=== PATIENT | male | born 1980 | race Caucasian/White ===

== ENCOUNTER 2020-02-18 14:48 | Emergency (ER) | payer BC, OTHER ==
[~2020-02-18] VITALS: Ht 188 cm; Wt 100.0 kg
[2020-02-18 15:09] LABS: BASO % 0.7 % (0.0-1.0); EOS # 0.1 10^3/uL (0.0-0.5); HEMATOCRIT 48.3 % (42.0-52.0); HEMOGLOBIN 15.6 g/dl (13.5-17.5); LYMPH # 1.9 10^3/uL (1.5-5.0); LYMPH % 32.1 % (24.0-44.0); MEAN CORPUSCULAR HEMOGLOBIN 29.2 pg (27.0-33.0); MEAN CORPUSCULAR HGB CONC 32.3 g/dl (32.0-36.5); MEAN CORPUSCULAR VOLUME 90.3 fl (80.0-96.0); MONO # 0.6 10^3/uL (0.0-0.8); MONO % 10.4 % (0.0-5.0); NEUTROPHILS # 3.3 10^3/uL (1.5-8.5); NEUTROPHILS % 55.5 % (36.0-66.0); PLATELET COUNT, AUTOMATED 231 10^3/uL (150-450); RED BLOOD COUNT 5.35 10^6/uL (4.30-6.10)
[2020-02-18] MEDS ORDERED: NS 1,000 ML IV ONE (15:15)
[2020-02-18 15:59] LABS: ALBUMIN 3.9 GM/DL (3.2-5.2); ALT/SGPT 30 U/L (12-78); BILIRUBIN,TOTAL 0.5 MG/DL (0.2-1.0); BLOOD UREA NITROGEN 10 MG/DL (7-18); CALCIUM LEVEL 8.4 MG/DL (8.5-10.1); CARBON DIOXIDE LEVEL 27 MEQ/L (21-32); CHLORIDE LEVEL 107 MEQ/L (98-107); CK-MB VALUE MASS < 1.0 NG/ML (<3.6); CPK CREATINE PHOSPHOKINASE 95 U/L (39-308); CREATININE FOR GFR 1.08 MG/DL (0.70-1.30); GLOMERULAR FILTRATION RATE > 60.0 (>60); GLUCOSE, FASTING 106 MG/DL (70-100); MB/CK RELATIVE INDEX 1.05 (< OR =4); POTASSIUM SERUM 4.3 MEQ/L (3.5-5.1); SODIUM LEVEL 140 MEQ/L (136-145); TOTAL PROTEIN 6.9 GM/DL (6.4-8.2); TROPONIN I < 0.02 NG/ML (< 0.10)
--- NOTE | 2020-02-18 16:17 | ECGEPIP ---
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
[2020-02-18] MEDS ORDERED: EEG (16:28)
[2020-02-18] MEDS ORDERED: holter monitor (16:32)
--- NOTE | 2020-02-18 17:21 | REP ---
Clinical: Syncope . Comparison: None . Findings: The mediastinum and cardiac silhouette are stable and within normal limits for portable technique. The lung bales are clear without acute consolidation, effusion, or pneumothorax. Skeletal structures are intact. Impression: No acute cardiopulmonary process appreciated. Electronically Signed by Jack Nice MD 02/18/2020 05:12 P
[2020-02-18 21:41] LABS: CK-MB VALUE MASS < 1.0 NG/ML (<3.6); CPK CREATINE PHOSPHOKINASE 166 U/L (39-308); TROPONIN I < 0.02 NG/ML (< 0.10)
[2020-02-18 21:46] VITALS: BP 117/70
--- NOTE | 2020-02-19 07:25 | REP ---
Clinical: Seizures . Comparison: None . Findings: 2.5 cm chronic appearing calcified lesion in the right frontal lobe without significant surrounding edema or mass effect. No midline shift. No further lesions are identified. No extra-axial fluid collection. No intracranial hemorrhage. Remainder of the examination is essentially normal. Impression: 1. A 2.5 cm chronic appearing calcified lesion in the right frontal lobe. No associated vasogenic edema, mass effect, midline shift, hemorrhage or satellite lesions identified. 2. Remainder of the examination appears normal. Electronically Signed by Jack Nice MD 02/18/2020 04:09 P
--- NOTE | 2020-02-19 16:36 | ECGEPIP ---
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
--- NOTE | 2020-02-19 16:54 | ED PDOC ---
Post-Departure Follow-Up dr barnes faxed formal report of ct head for fu Mari Dewey MD Feb 19, 2020 16:54
== END 2020-02-18 22:05 | disposition home or self-care (01) ==
LOC: M ED 14:48
DX: R55 Syncope and collapse (principal); Z86.19 Personal history of other infectious and parasitic diseases; R93.0 Abnormal findings on diagnostic imaging of skull and head, not elsewhere classified

== ENCOUNTER → 2020-02-19 | Outpatient (CLI) | payer BC, OTHER ==
[~2020-02-19] MED LIST: EEG; holter monitor
--- NOTE | 2020-02-21 14:27 | HOLTMON ---
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 Heart rate variability was blunted. There were no PVC's and rare PAC's and no significant runs. No atrial fibrillation was seen. No significant ST events or pauses > 2 seconds, althogh at 09:49 PM there was a 1.64 second pause that appears to be related to sinus arrhythmia or a vagal maneuver. Unremarkable Holter monitor. No etiology for syncope is evident on this study. Electronically Signed on 02-21-2020 14:27:16 EDT by Yousuf Domingo
== END ==
LOC: M EKG 12:38
PROVIDERS: ATTEND Emergency Medicine
DX: R55 Syncope and collapse (principal)

== ENCOUNTER → 2020-02-22 | Outpatient (CLI) | payer BC, OTHER ==
--- NOTE | 2020-02-22 12:39 | REP ---
MRI BRAIN WITHOUT CONTRAST: HISTORY: Syncope. Comparison: CT study February 18, 2020 showed a 2.5 cm lesion containing calcification in the right frontal lobe. TECHNIQUE: Axial and sagittal imaging planes are utilized for T1- and T2-weighted scans. Sequences include spin echo, fast spin echo, FLAIR, and diffusion weighted sequences. MRI FINDINGS: No bony calvarial abnormality is seen. Craniocervical junction and upper cervical cord are normal in appearance. There is no MR evidence of significant paranasal sinus disease. No intraorbital abnormality is seen. Lateral, third, fourth ventricles are normal in size and position. The lesion seen in the right posterior frontal lobe on CT study is observed on MR. On the CT scan it contains large calcific components which display low T1 and low T2 signal intensity on MRI scanning. This is surrounded by an area of T2 hyperintense signal and some mild associated mass effect. The lesion is most compatible with a low grade glioma such as oligodendroglioma. Post contrast MRI study should be considered. The lesion is intra-axial centered in the cortex of the right frontal lobe. Overall, its dimensions are 3.5 x 3.2 x 4.1 cm x MRI scanning. No other intracranial mass lesion is seen. Diffusion weighted scans show no evidence of restricted diffusion in the mass or elsewhere in the brain to suggest acute ischemia. No extra-axial fluid collection is seen. There is no evidence of intracranial hemorrhage. IMPRESSION: There is a 4.1 cm mass in the right frontal lobe containing calcification and showing some adjacent edema consistent with low grade glioma , such as oligodendroglioma. Postcontrast enhanced MRI scanning should be considered. Electronically Signed by Porfirio Montano MD 02/22/2020 03:16 P
== END ==
LOC: M RAD 09:54
PROVIDERS: ATTEND Emergency Medicine
DX: R55 Syncope and collapse (principal)

== ENCOUNTER → 2020-02-22 | Outpatient (CLI) | payer BC, OTHER ==
--- NOTE | 2020-02-22 19:48 | EEG ---
DATE OF PROCEDURE: 02/22/2020 REFERRING PHYSICIAN: Dr. Irene Guo DIAGNOSIS: Seizure. EEG NUMBER: [id number] HISTORY: The patient is a 39-year-old man who had an episode of loss of consciousness and possible seizure. This EEG was done to rule out epileptic potential. He is currently taking no medications. TECHNICAL DESCRIPTION: This digital EEG was recorded by 21 scalp, ear and two EKG electrodes and was reviewed in bipolar and referential montages following reformatting in 10-20 international electrode placement system. INTERPRETATION: The patient was noted to be in awake and drowsy states during this EEG. Resting awake background rhythm consisted of well-formed posterior dominant rhythm with anterior/posterior gradient comprising of 9 Hz alpha activity measuring 15-50 microvolts in amplitude, which was symmetric and reactive to eye opening. Attenuation of posterior dominant rhythm was seen during transition into drowsiness. Anteriorly low voltage and mixed frequency activity was noted. Stage I and II sleep were reviewed and were symmetric bilaterally. Hyperventilation could not be performed. Photic stimulation at 3-30 Hz elicited symmetric photic driving, especially at mid frequencies. EKG revealed normal sinus rhythm. No focal, lateralizing or epileptiform abnormalities were seen. No relevant clinical activity was noted. CONCLUSION: This EEG in awake, drowsy states, stage I and II sleep is within normal limits.
== END ==
LOC: M SLEEP 08:05
PROVIDERS: ATTEND Emergency Medicine
DX: G40.89 Other seizures (principal)

== ENCOUNTER → 2020-02-28 | Outpatient (CLI) | payer BC, OTHER ==
[~2020-02-28] MED LIST changes: +GASTROGRAFIN SOLUTION 30ML (Q9963) As Ordered ONE; +ISOVUE-370 76% 100ML VIAL (Q9967) As Ordered ONE
--- NOTE | 2020-02-28 19:12 | REP ---
CT CHEST WITH IV CONTRAST TECHNIQUE: Axial contrast enhanced images from the thoracic inlet to the upper abdomen using 100 mL Isovue 370 intravenous contrast material with multiplanar reformations. The lungs show mild biapical pleural and parenchymal scarring. No infiltrate or suspicious nodule is seen in either lung. There is some minor fibrotic scarring in the right posterior costophrenic sulcus. There is no mediastinal, hilar or chest wall lymphadenopathy. There is no pleural or pericardial effusion. The heart is normal in size. No thoracic aortic aneurysm or dissection is seen. No bone lesion is seen. IMPRESSION: Mild pleural and parenchymal fibrotic changes in the lungs. No suspicious nodule or adenopathy. Electronically Signed by Paulino Blanco MD 02/29/2020 11:55 A
--- NOTE | 2020-02-28 19:39 | REP ---
CT ABDOMEN AND PELVIS WITH ORAL AND IV CONTRAST, CT ABDOMEN WITHOUT IV CONTRAST: CT abdomen and pelvis performed following intravenous administration of 100 mL of Isovue-370 as well as oral contrast. Pre IV contrast images are obtained through the abdomen. Sagittal and coronal reconstruction images are performed. The liver, spleen, adrenals, pancreas and kidneys demonstrate no mass. Gallbladder is grossly unremarkable. There is no abdominal aortic aneurysm. No adenopathy is seen in the abdomen or pelvis. There is no free air or free fluid. There is no bowel wall thickening. The appendix is normal. No pelvic mass is seen. There are a few sigmoid diverticula present. Urinary bladder is mildly distended and grossly unremarkable. There is a small left inguinal hernia containing fat. No bone lesions are seen. IMPRESSION: No mass or adenopathy. A few sigmoid diverticula are present. Small left inguinal hernia contains fat. Electronically Signed by Paulino Blanco MD 02/29/2020 11:57 A
== END ==
LOC: M RAD 13:50
PROVIDERS: ATTEND Psychiatry & Neurology Neurology
DX: G93.6 Cerebral edema (principal); D33.0 Benign neoplasm of brain, supratentorial; K55.9 Vascular disorder of intestine, unspecified; R91.8 Other nonspecific abnormal finding of lung field
CPT/HCPCS: 71260; 74178; Q9963; Q9967

== ENCOUNTER → 2020-04-04 | Outpatient (CLI) | payer BC, OTHER ==
[~2020-04-04] MED LIST changes: -GASTROGRAFIN SOLUTION 30ML (Q9963) As Ordered ONE; -ISOVUE-370 76% 100ML VIAL (Q9967) As Ordered ONE; +KEPP1TAB2 PO
--- NOTE | 2020-04-09 15:16 | RADONC ---
RADIATION ONCOLOGY CONSULTATION NOTE DATE: 04/04/2020 This is a telemedicine visit. The patient was informed of the risks including security breech, technological failure, inability to perform a comprehensive physical exam which could delay or prevent an accurate diagnosis, and potential complications from treatment decisions rendered over a telemedicine platform. The patient understands and consented to the use of telehealth services phone only. CHART NUMBER: [id number] DIAGNOSIS: Anaplastic oligodendroglioma. GRADE: 3 ECOG PERFORMANCE STATUS BY TELEPHONE: 0 CONSULTATION NOTE: Mr. 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 HISTORY OF PRESENT ILLNESS: The patient has been in his usual state of good health until recently when he developed a seizure. He was seen and an MRI of the brain was done on 02/22/2020. This revealed a 4.1 cm mass in the right frontal lobe containing calcifications and some adjacent edema consistent with what was thought to be a low grade glioma. 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 The patient was seen by his medical oncologist, Dr. Cuadra, who is planning systemic therapy following completion of radiation and has now been referred to us for consideration of postoperative radiation therapy in attempt to achieve local control by IMRT/IGRT. PAST MEDICAL HISTORY: The patient's past medical history is positive for some depression. He had trauma with screws placed in his left wrist in the year 1999. ALLERGIES: The patient has NO KNOWN DRUG ALLERGIES. SOCIAL HISTORY: The patient does not smoke cigarettes. He drinks alcohol socially. FAMILY HISTORY: The patient's family history is positive for a mother with some type of cancer. REVIEW OF SYSTEMS: The patient's review of systems is noncontributory. Denies nausea, vomiting, fevers, chills, night sweats, diplopia, headaches, anxiety or depression, anorexia, weight loss, visual disturbances, chest pain, urinary or bowel difficulties, bone pain, or neurological problems. PHYSICAL EXAMINATION: Physical examination was deferred and this was a telephone consultation as per COVID-19 precautions. MEDICAL NECESSITY: IMRT/IGRT is clinically indicated for the highly conformal dose planning required. The target volume is in close proximity to critical structures, such as the normal brain, brainstem, eyes, optic nerves, spinal cord. The volume of interest must be covered with narrow margins to adequately protect immediately adjacent structures. The plan requires interpretation of complex testing such as CT localization. As noted above, special planning (IMRT) and localizing (IGRT) is required and essential to maximally protect sensitive normal tissue structures which cannot be accomplished using conventional 3-dimensional planning. ASSESSMENT: Clearly the patient is a candidate for external beam radiation therapy and I have so informed him. I have discussed with the patient in detail the potential benefits as well as possible acute and chronic sequelae of external beam radiation therapy. We have discussed logistics of treatment planning, simulation and subsequent fractionated daily radiation treatments. I am scheduling the patient for the next available simulation slot and radiation treatments will begin subsequently. Thank you for allowing us to participate in the care of this very pleasant gentleman. If I could be of any further assistance or provide you with any information, please free to contact me at anytime. As always, warm regards. cc: MD Aries Padron MD Justin Oh, MD Mijung Lee, MD MTDD
== END ==
LOC: M ONCR 13:08
PROVIDERS: ATTEND Radiology Radiation Oncology
DX: C71.9 Malignant neoplasm of brain, unspecified (principal); F33.9 Major depressive disorder, recurrent, unspecified

== ENCOUNTER 2020-04-19 09:30 | Outpatient (RCR) | payer BC, OTHER ==
--- NOTE | 2020-04-15 14:50 | RADONC ---
RADIATION ONCOLOGY SIMULATION NOTE DATE: 04/10/2020 CHART NUMBER: [id number] SIMULATION NOTE: Mr. Solo was taken to the CT scan for CT simulation of his brain field. CT was accomplished without difficulty or discomfort. Radiation treatment planning is underway and radiation treatments will begin subsequently. An immobilization device including a mask was created without difficulty or discomfort. It was created without difficulty or discomfort. I was physically present throughout the course of CT simulation.
== END 2020-04-21 ==
LOC: M ONCR 09:30
PROVIDERS: ATTEND Radiology Radiation Oncology
DX: C71.1 Malignant neoplasm of frontal lobe (principal)

== ENCOUNTER → 2020-05-21 | Outpatient (RCR) | payer BC, OTHER ==
--- NOTE | 2020-04-28 08:16 | RADONC ---
RADIATION ONCOLOGY PROGRESS NOTE: 04/22/2020 CHART NUMBER: [id number] Mr. Solo is presently at a dose of 540 cGy to his brain tumor and is tolerating treatments quite well at this point with no complaints related to his radiation therapy. He is having no headaches or other problems. REVIEW OF SYSTEMS: The patient's review of systems is noncontributory. He denies nausea, vomiting, fevers, chills, night sweats, diplopia, headaches, anxiety or depression, anorexia, weight loss, visual disturbances, chest pain, urinary or bowel difficulties, bone pain, or neurological problems. PHYSICAL EXAMINATION: The patient's physical exam shows his skin to be in good condition with no evidence of moist or dry desquamation. There are no radiation changes present. The remainder of his physical exam remains unchanged. Mr. Solo is tolerating treatments quite well and radiation will continue as scheduled.
--- NOTE | 2020-05-02 23:20 | RADONC ---
RADIATION ONCOLOGY PROGRESS NOTE DATE: 04/29/2020 CHART NUMBER: [id number] Mr. Solo is presently at a dose of 1440 cGy to his brain and is tolerating treatments quite well at this point with no complaints related to his radiation therapy. He is having no headaches or further problems. The patient's review of systems is noncontributory. He denies nausea, vomiting, fevers, chills, night sweats, diplopia, headaches, anxiety or depression, anorexia, weight loss, visual disturbances, chest pain, urinary or bowel difficulties, bone pain, or neurological problems. PHYSICAL EXAMINATION The patient's skin is in excellent condition with no evidence of moist or dry desquamation. The remainder of his physical exam remains unchanged. Ms. Solo is tolerating treatments quite well and radiation will continue as scheduled.
--- NOTE | 2020-05-08 09:48 | RADONC ---
RADIATION ONCOLOGY PROGRESS NOTE DATE: 05/06/2020 CHART NUMBER: [id number] PROGRESS NOTE: Mr. Solo is presently at a dose of 2340 cGy to his brain and is tolerating treatments quite well at this point with no complaints related to his radiation therapy. He is having no headaches or other problems. REVIEW OF SYSTEMS: The patient's review of systems is noncontributory. Denies nausea, vomiting, fevers, chills, night sweats, diplopia, headaches, anxiety or depression, anorexia, weight loss, visual disturbances, chest pain, urinary or bowel difficulties, bone pain, or neurological problems. PHYSICAL EXAMINATION: The patient's skin is in good condition with no evidence of moist or dry desquamation. The remainder of his physical exam remains unchanged. Mr. Solo is tolerating treatments quite well and radiation will continue as scheduled.
--- NOTE | 2020-05-15 14:04 | RADONC ---
RADIATION ONCOLOGY PROGRESS NOTE DATE OF SERVICE: 05/13/2020 CHART NUMBER: [id number]. PROGRESS NOTE: Mr. Solo has the diagnosis of oligodendroglioma. So far, he has received dose of 3240 cGy in 18 fractions. Decadron was discontinued. He is on Keppra. He has no complaints other than the fatigue due to insomnia. REVIEW OF SYSTEMS: There is no other complains other than fatigue and insomnia. Denies nausea, vomiting, headache, visual disturbances. No other neurological problems. PHYSICAL EXAMINATION: The patient is well developed and nourished. There is partial alopecia on the right parietal area due to radiation. Overall, he is tolerating treatment very well, and radiation therapy will continue as planned. MTDD
--- NOTE | 2020-05-23 08:54 | RADONC ---
RADIATION ONCOLOGY DATE OF SERVICE: 05/20/2020 CHART #: [id number] Mr. Solo carries the diagnosis of oligodendroglioma. So far, he has received a dose of 4140 cGy in 23 fractions. Decadron was discontinued. He is on Keppra. He has no complaints other than the fatigue due to insomnia. REVIEW OF SYSTEMS: There are no complaints other than fatigue and insomnia. He denies nausea, vomiting, headache, visual disturbances. PHYSICAL EXAMINATION: The patient is well developed and nourished. As expected, there is a partial alopecia on the right parietal area due to radiation therapy. He complains of slight itching, which I advised to use hydrocortisone cream. Overall, he is tolerating treatment very well and the radiation therapy will continue as planned. MTDD
== END ==
LOC: M ONCR 04-22 09:28
PROVIDERS: ATTEND Radiology Radiation Oncology
DX: C71.1 Malignant neoplasm of frontal lobe (principal)

== ENCOUNTER 2020-06-12 09:29 | Outpatient (RCR) | payer BC, OTHER ==
--- NOTE | 2020-06-04 16:23 | RADONC ---
RADIATION ONCOLOGY PROGRESS NOTE: DATE: 05/27/2020 CHART NUMBER: [id number] Mr. Solo is presently at a dose of 4860 cGy to his brain and is tolerating treatments quite well at this point with no complaints related to his radiation therapy. He is having no headaches or other problems. The patient's review of systems is noncontributory. He denies nausea, vomiting, fevers, chills, night sweats, diplopia, headaches, anxiety or depression, anorexia, weight loss, visual disturbances, chest pain, urinary or bowel difficulties, bone pain, or neurological problems. PHYSICAL EXAMINATION: The patient's skin is in good condition with no evidence of radiation change present. There is no moist or dry desquamation. The remainder of his physical exam remains unchanged. Ms. Solo is tolerating treatments quite well and radiation will continue as scheduled.
--- NOTE | 2020-06-10 17:22 | RADONC ---
RADIATION ONCOLOGY PROGRESS NOTE DATE: 06/10/2020 CHART NUMBER: [id number] PROGRESS NOTE: Mr. Solo is presently at a dose of 5400 cGy to his brain tumor and is tolerating treatments quite well at this point with no complaints related to his radiation therapy. He is having no headaches or seizures. He has no other problems. REVIEW OF SYSTEMS: The patient's review of systems is noncontributory. Denies nausea, vomiting, fevers, chills, night sweats, diplopia, headaches, anxiety or depression, anorexia, weight loss, visual disturbances, chest pain, urinary or bowel difficulties, bone pain, or neurological problems. PHYSICAL EXAMINATION: The patient's skin is in good condition with no evidence of moist or dry desquamation. The remainder of his physical exam remains unchanged. Mr. Solo is tolerating treatments quite well and radiation will continue as scheduled.
[2020-07-17] MEDS ORDERED: ONDA-83 (09:48)
[2020-07-17] MEDS ORDERED: [UNRECOGNIZED DRUG - CODE] (09:48)
[2020-07-17] MEDS ORDERED: LEVE750T5 (09:48)
[2020-07-17] MEDS ORDERED: LIDO2SOL9 (09:48)
[2020-07-17] MEDS ORDERED: [UNRECOGNIZED DRUG - CODE] (09:48)
[2020-07-17] MEDS ORDERED: [UNRECOGNIZED DRUG - CODE] (09:48)
[2020-07-17] MEDS ORDERED: [UNRECOGNIZED DRUG - CODE] (09:48)
== END 2020-06-21 ==
LOC: M ONCR 09:29
PROVIDERS: ATTEND Radiology Radiation Oncology
DX: C71.1 Malignant neoplasm of frontal lobe (principal)

== ENCOUNTER → 2020-06-24 | Outpatient (CLI) | payer BC, OTHER ==
[~2020-06-24] MED LIST changes: +FAMO40TA3 PO; +LEVE750T5; +LIDO2SOL9; +ONDA-83; +PRED20TA PO; +PRED50TA; +[UNRECOGNIZED DRUG - CODE]; +[UNRECOGNIZED DRUG - CODE]; +[UNRECOGNIZED DRUG - CODE]; +[UNRECOGNIZED DRUG - CODE]
--- NOTE | 2020-08-02 14:46 | PULFX ---
ORDERING PROVIDER: Pre and post bronchodilator test have excellent technical quality. Forced vital capacity: normal. FEV1 and FVC are normal. Flow volume loop normal. No significant bronchodilator response identified. Total lung capacity mildly elevated. Residual volume proportionate. Diffusion capacity normal. Hemoglobin acceptable at 14.7 IMPRESSION: Probably normal study MTDD
--- NOTE | 2020-08-05 14:52 | PFTRPT ---
Visit Date: 06/24/2020 Second ID: [id number] Referring Doctor: NAGI WRIGHT MD Height: 74.00 Inches Weight: 234.00 Lbs BSA: 2.32 Diagnosis: C71.9 TECHNIQUE: Pre- and post-bronchodilator study of adequate technical quality. FINDINGS: Forced vital capacity is normal. FEV1 is in proportion of obstructive index; therefore, normal. Expiratory limit within the flow-volume loop is normal. No significant bronchodilator response identified. Total lung capacity is borderline elevated. Residual volume is in proportion. Diffusing capacity is normal. Hemoglobin is acceptable at 14.7. Airway resistance and conductance are normal. IMPRESSION: Essentially normal study. MTDD
== END ==
LOC: M CARPUL 11:30
PROVIDERS: ATTEND Internal Medicine Medical Oncology
DX: C71.9 Malignant neoplasm of brain, unspecified (principal)

== ENCOUNTER → 2020-07-17 | Outpatient (CLI) | payer BC, OTHER | LOC: M ONCR 09:31 | PROVIDERS: ATTEND General Practice | DX: C71.1 Malignant neoplasm of frontal lobe (principal) ==

== ENCOUNTER → 2020-07-24 | Outpatient (CLI) | payer BC, OTHER ==
[~2020-07-24] MED LIST changes: +PROHANCE 279.3MG/ML 15ML VIAL As Ordered ONE; +PROHANCE 279.3MG/ML 5ML VIAL As Ordered ONE
--- NOTE | 2020-07-24 10:30 | REPVR ---
PROCEDURE INFORMATION: Exam: MR Head Without and With Contrast Exam date and time: 07/24/2020 9:44 AM Age: 40 years old Clinical indication: Condition or disease; Brain tumor; Neoplasm of brain, uncertain behavior; Prior surgery; Surgery date: 1-6 months; Surgery type: Resection of tumor 02/2020; Patient HX: HX brain neoplasm, resection 02/2020, no current symptoms, recheck S/P SX and radiation; Additional info: Brain CA ? mets TECHNIQUE: Imaging protocol: MR of the head without and with intravenous contrast. Contrast material: PROHANCE; Contrast volume: 20 ml; Contrast route: INTRAVENOUS (IV); COMPARISON: MRI BRAIN W/ & W/O CONTRAST - OUTSIDE PRIOR 03/17/2020 10:11 AM FINDINGS: Brain: A bland resection cavity is seen in the right frontal lobe with smooth margins measuring 21 x 36 x 30 mm.There are no regions of abnormal enhancement. The internal contents demonstrate diffusion facilitation consistent with simple fluid. There is a thin margin of enhancement at the caudal surface on coronal image 12 and sagittal image 14 with no suggestion of an enhancing nodule. There is a thin rim of increased T2 signal best seen on FLAIR images somewhat thicker at the superomedial margin on axial images 23 and 24 of series 501 where there is no associated enhancement. No other intracranial pathology is seen to suggest metastatic spread. Ventricles: Normal. No ventriculomegaly. Bones/joints: Unremarkable. Sinuses: Normal as visualized. No acute sinusitis. Mastoid air cells: Normal as visualized. No mastoid effusion. Orbits: Unremarkable. Soft tissues: Unremarkable. Other vasculature: Normal vascular flow voids are present. IMPRESSION: 1. A bland resection cavity is seen in the right frontal lobe with smooth margins measuring 21 x 36 x 30 mm.There are no regions of abnormal enhancement. The internal contents demonstrate diffusion facilitation consistent with simple fluid. There is a thin margin of enhancement at the caudal surface on coronal image 12 and sagittal image 14 with no suggestion of an enhancing nodule. There is a thin rim of increased T2 signal best seen on FLAIR images somewhat thicker at the superomedial margin on axial images 23 and 24 of series 501 where there is no associated enhancement. 2. No other intracranial pathology is seen to suggest metastatic spread. Electronically signed by: Sudhakar Gotti On 07/24/2020 10:29:34 AM
== END ==
LOC: M RAD 08:34
PROVIDERS: ATTEND Internal Medicine Medical Oncology
DX: C71.9 Malignant neoplasm of brain, unspecified (principal)
CPT/HCPCS: 70553; A9576

== ENCOUNTER → 2020-08-15 | Outpatient (CLI) | payer BC, OTHER ==
[~2020-08-15] MED LIST changes: -PROHANCE 279.3MG/ML 15ML VIAL As Ordered ONE; -PROHANCE 279.3MG/ML 5ML VIAL As Ordered ONE
[2020-08-15 13:05] LABS: BASO % 0.5 % (0.0-1.0); EOS # 0.1 10^3/uL (0.0-0.5); EOS % 1.6 % (0.0-3.0); HEMATOCRIT 44.8 % (42.0-52.0); HEMOGLOBIN 14.7 g/dl (13.5-17.5); LYMPH # 1.3 10^3/uL (1.5-5.0); LYMPH % 35.8 % (24.0-44.0); MEAN CORPUSCULAR HEMOGLOBIN 29.6 pg (27.0-33.0); MEAN CORPUSCULAR HGB CONC 32.8 g/dl (32.0-36.5); MEAN CORPUSCULAR VOLUME 90.1 fl (80.0-96.0); MONO # 0.4 10^3/uL (0.0-0.8); MONO % 9.4 % (0.0-5.0); NEUTROPHILS % 52.7 % (36.0-66.0); PLATELET COUNT, AUTOMATED 159 10^3/uL (150-450); RED BLOOD COUNT 4.97 10^6/uL (4.30-6.10); WHITE BLOOD COUNT 3.7 10^3/uL (4.0-10.0)
== END ==
LOC: M WUC 11:52
PROVIDERS: ATTEND Internal Medicine Medical Oncology
DX: C71.9 Malignant neoplasm of brain, unspecified (principal)

== ENCOUNTER → 2020-09-03 | Outpatient (CLI) | payer BC, OTHER ==
[2020-09-03 15:40] LABS: BASO % 0.4 % (0.0-1.0); EOS % 0.4 % (0.0-3.0); HEMOGLOBIN 12.9 g/dl (13.5-17.5); LYMPH # 0.7 10^3/uL (1.5-5.0); LYMPH % 28.2 % (24.0-44.0); MEAN CORPUSCULAR HEMOGLOBIN 29.3 pg (27.0-33.0); MEAN CORPUSCULAR HGB CONC 32.3 g/dl (32.0-36.5); MEAN CORPUSCULAR VOLUME 90.7 fl (80.0-96.0); MONO # 0.4 10^3/uL (0.0-0.8); MONO % 14.7 % (0.0-5.0); NEUTROPHILS # 1.5 10^3/uL (1.5-8.5); NEUTROPHILS % 55.9 % (36.0-66.0); PLATELET COUNT, AUTOMATED 202 10^3/uL (150-450); RED BLOOD COUNT 4.41 10^6/uL (4.30-6.10); WHITE BLOOD COUNT 2.6 10^3/uL (4.0-10.0)
== END ==
LOC: M WUC 12:10
PROVIDERS: ATTEND Internal Medicine Medical Oncology
DX: C71.9 Malignant neoplasm of brain, unspecified (principal)

== ENCOUNTER 2020-09-08 12:08 | Emergency (ER) | payer BC, OTHER ==
[~2020-09-08] VITALS: Ht 190.5 cm; Wt 103.3 kg
[~2020-09-08 12:08] MED LIST changes: -FAMO40TA3 PO; -PRED20TA PO; -PRED50TA
[2020-09-08] MEDS ORDERED: PRED50TA (12:17)
[2020-09-08] MEDS ORDERED: FAMO40TA3 PO (13:09)
[2020-09-08] MEDS ORDERED: PRED20TA PO (13:09)
[2020-09-08 13:18] VITALS: BP 123/82
== END 2020-09-08 13:19 | disposition home or self-care (01) ==
LOC: M ED 12:08
DX: T78.40XA Allergy, unspecified, initial encounter (principal); C71.1 Malignant neoplasm of frontal lobe; Z79.899 Other long term (current) drug therapy

== ENCOUNTER → 2020-09-26 | Outpatient (CLI) | payer BC, OTHER ==
[~2020-09-26] MED LIST changes: +FAMO40TA3 PO; +PRED20TA PO; +PRED50TA
[2020-09-26 16:10] LABS: BASO % 0.4 % (0.0-1.0); EOS % 0.6 % (0.0-3.0); HEMATOCRIT 45.9 % (42.0-52.0); LYMPH # 1.1 10^3/uL (1.5-5.0); LYMPH % 20.6 % (24.0-44.0); MEAN CORPUSCULAR HEMOGLOBIN 30.3 pg (27.0-33.0); MEAN CORPUSCULAR HGB CONC 32.7 g/dl (32.0-36.5); MEAN CORPUSCULAR VOLUME 92.7 fl (80.0-96.0); MONO # 0.5 10^3/uL (0.0-0.8); MONO % 9.9 % (0.0-5.0); NEUTROPHILS # 3.6 10^3/uL (1.5-8.5); NEUTROPHILS % 68.3 % (36.0-66.0); PLATELET COUNT, AUTOMATED 159 10^3/uL (150-450); RED BLOOD COUNT 4.95 10^6/uL (4.30-6.10); WHITE BLOOD COUNT 5.3 10^3/uL (4.0-10.0)
== END ==
LOC: M WUC 14:56
PROVIDERS: ATTEND Internal Medicine Medical Oncology
DX: C71.9 Malignant neoplasm of brain, unspecified (principal)

== ENCOUNTER → 2020-11-14 | Outpatient (CLI) | payer OTHER, BC ==
[2020-11-14 13:53] LABS: BASO % 0.4 % (0.0-1.0); EOS % 0.7 % (0.0-3.0); HEMATOCRIT 44.4 % (42.0-52.0); HEMOGLOBIN 14.4 g/dl (13.5-17.5); LYMPH # 0.9 10^3/uL (1.5-5.0); LYMPH % 32.2 % (24.0-44.0); MEAN CORPUSCULAR HEMOGLOBIN 31.4 pg (27.0-33.0); MEAN CORPUSCULAR HGB CONC 32.4 g/dl (32.0-36.5); MEAN CORPUSCULAR VOLUME 96.9 fl (80.0-96.0); MONO # 0.3 10^3/uL (0.0-0.8); MONO % 12.2 % (0.0-5.0); NEUTROPHILS # 1.5 10^3/uL (1.5-8.5); NEUTROPHILS % 54.5 % (36.0-66.0); PLATELET COUNT, AUTOMATED 148 10^3/uL (150-450); RED BLOOD COUNT 4.58 10^6/uL (4.30-6.10); WHITE BLOOD COUNT 2.7 10^3/uL (4.0-10.0)
== END ==
LOC: M WUC 11:16
PROVIDERS: ATTEND Internal Medicine Medical Oncology
DX: C71.9 Malignant neoplasm of brain, unspecified (principal)

== ENCOUNTER → 2020-11-21 | Outpatient (CLI) | payer OTHER, BC ==
[2020-11-21 11:53] LABS: BASO % 0.4 % (0.0-1.0); EOS % 0.8 % (0.0-3.0); HEMOGLOBIN 14.4 g/dl (13.5-17.5); LYMPH # 0.9 10^3/uL (1.5-5.0); LYMPH % 32.3 % (24.0-44.0); MEAN CORPUSCULAR HEMOGLOBIN 31.6 pg (27.0-33.0); MEAN CORPUSCULAR HGB CONC 32.7 g/dl (32.0-36.5); MEAN CORPUSCULAR VOLUME 96.5 fl (80.0-96.0); MONO # 0.4 10^3/uL (0.0-0.8); MONO % 16.2 % (0.0-5.0); NEUTROPHILS # 1.3 10^3/uL (1.5-8.5); NEUTROPHILS % 50.3 % (36.0-66.0); PLATELET COUNT, AUTOMATED 174 10^3/uL (150-450); RED BLOOD COUNT 4.56 10^6/uL (4.30-6.10); WHITE BLOOD COUNT 2.7 10^3/uL (4.0-10.0)
== END ==
LOC: M WUC 10:27
PROVIDERS: ATTEND Internal Medicine Medical Oncology
DX: C71.9 Malignant neoplasm of brain, unspecified (principal)

== ENCOUNTER → 2020-11-29 | Outpatient (CLI) | payer OTHER, BC ==
[2020-11-29 12:47] LABS: BASO % 0.6 % (0.0-1.0); EOS % 0.9 % (0.0-3.0); HEMATOCRIT 44.3 % (42.0-52.0); HEMOGLOBIN 14.5 g/dl (13.5-17.5); LYMPH # 0.9 10^3/uL (1.5-5.0); LYMPH % 27.3 % (24.0-44.0); MEAN CORPUSCULAR HEMOGLOBIN 31.5 pg (27.0-33.0); MEAN CORPUSCULAR HGB CONC 32.7 g/dl (32.0-36.5); MEAN CORPUSCULAR VOLUME 96.1 fl (80.0-96.0); MONO # 0.4 10^3/uL (0.0-0.8); MONO % 13.2 % (0.0-5.0); NEUTROPHILS # 1.9 10^3/uL (1.5-8.5); NEUTROPHILS % 57.7 % (36.0-66.0); PLATELET COUNT, AUTOMATED 181 10^3/uL (150-450); RED BLOOD COUNT 4.61 10^6/uL (4.30-6.10); WHITE BLOOD COUNT 3.3 10^3/uL (4.0-10.0)
== END ==
LOC: M WUC 11:17
PROVIDERS: ATTEND Internal Medicine Medical Oncology
DX: C71.9 Malignant neoplasm of brain, unspecified (principal)

== ENCOUNTER → 2020-12-05 | Outpatient (CLI) | payer BC, OTHER ==
[~2020-12-05] MED LIST changes: +PROHANCE 279.3MG/ML 15ML VIAL As Ordered ONE; +PROHANCE 279.3MG/ML 5ML VIAL As Ordered ONE
--- NOTE | 2020-12-05 16:06 | REPVR ---
PROCEDURE INFORMATION: Exam: MR Head Without and With Contrast Exam date and time: 12/05/2020 2:57 PM Age: 40 years old Clinical indication: Condition or disease; Primary brain cancer; Primary cancer: Anaplasic oligodendroglioma; Additional info: Anaplasic oligodendroglioma idh brain CA surveilla TECHNIQUE: Imaging protocol: MR of the head without and with intravenous contrast. Contrast material: PROHANCE; Contrast volume: 20 ml; Contrast route: INTRAVENOUS (IV); COMPARISON: MRI-Brain W/O FOLL BY WITH 07/24/2020 9:41 AM FINDINGS: Brain: There is a right frontal postoperative cavity. There is no evidence of acute infarct. There is a small amount of hyperintense signal on FLAIR and T2 images at the margins of resection . This is particularly seen in the right superior frontal gyrus, series 601 T4 and 25. There is minimal smooth rim enhancement and smooth enhancement of the overlying dura this is decreased from prior scan. No nodular enhancement. No progressive enhancement. No hemorrhage. No extra-axial collection. No abnormal flow voids. Cerebral ventricles: There is no hydrocephalus. Bones/joints: There is a right frontal craniotomy. Paranasal sinuses: Normal as visualized. No acute sinusitis. Mastoid air cells: Normal as visualized. No mastoid effusion. Orbits: Unremarkable. Soft tissues: Unremarkable. IMPRESSION: Right frontal craniotomy with a postoperative cavity. There is hyperintense signal at the margin of resection, particularly in the superior frontal gyrus. This could represent residual nonenhancing tumor, stable compared with prior scan. Minimal postoperative rim enhancement significantly decreased from prior scan. No evidence of enhancing tumor Electronically signed by: Олег Singer On 12/05/2020 16:06:06 PM
== END ==
LOC: M RAD 14:11
PROVIDERS: ATTEND Nurse Practitioner Family
DX: C71.9 Malignant neoplasm of brain, unspecified (principal)
CPT/HCPCS: 70553; A9576

== ENCOUNTER → 2021-01-13 | Outpatient (CLI) | payer BC, OTHER ==
[~2021-01-13] MED LIST changes: -PROHANCE 279.3MG/ML 15ML VIAL As Ordered ONE; -PROHANCE 279.3MG/ML 5ML VIAL As Ordered ONE
[2021-01-13 10:48] LABS: BASO % 0.4 % (0.0-1.0); EOS # 0.1 10^3/uL (0.0-0.5); EOS % 1.8 % (0.0-3.0); HEMATOCRIT 42.5 % (42.0-52.0); HEMOGLOBIN 13.6 g/dl (13.5-17.5); LYMPH # 0.7 10^3/uL (1.5-5.0); LYMPH % 23.9 % (24.0-44.0); MEAN CORPUSCULAR HEMOGLOBIN 30.8 pg (27.0-33.0); MEAN CORPUSCULAR VOLUME 96.2 fl (80.0-96.0); MONO # 0.3 10^3/uL (0.0-0.8); MONO % 9.9 % (2.0-8.0); NEUTROPHILS # 1.7 10^3/uL (1.5-8.5); RED BLOOD COUNT 4.42 10^6/uL (4.30-6.10); WHITE BLOOD COUNT 2.7 10^3/uL (4.0-10.0)
[2021-01-13 11:08] LABS: PLATELET COUNT, AUTOMATED 87 10^3/uL (150-450)
== END ==
LOC: M WUC 08:14
PROVIDERS: ATTEND Internal Medicine Medical Oncology
DX: C71.9 Malignant neoplasm of brain, unspecified (principal)

== ENCOUNTER → 2021-01-14 | Outpatient (CLI) | payer BC, OTHER ==
[2021-01-14 10:02] LABS: ALBUMIN 4.1 GM/DL (3.2-5.2); ALT/SGPT 285 U/L (12-78); BILIRUBIN,TOTAL 0.7 MG/DL (0.2-1.0); BLOOD UREA NITROGEN 18 MG/DL (7-18); CALCIUM LEVEL 9.2 MG/DL (8.5-10.1); CARBON DIOXIDE LEVEL 31 MEQ/L (21-32); CHLORIDE LEVEL 105 MEQ/L (98-107); CREATININE FOR GFR 0.99 MG/DL (0.70-1.30); GLOMERULAR FILTRATION RATE > 60.0 (>60); GLUCOSE, FASTING 101 MG/DL (70-100); POTASSIUM SERUM 3.7 MEQ/L (3.5-5.1); SODIUM LEVEL 142 MEQ/L (136-145); TOTAL PROTEIN 6.9 GM/DL (6.4-8.2)
== END ==
LOC: M WUC 08:03
PROVIDERS: ATTEND Internal Medicine Medical Oncology
DX: C71.9 Malignant neoplasm of brain, unspecified (principal)

== ENCOUNTER → 2021-01-15 | Outpatient (CLI) | payer BC, OTHER ==
--- NOTE | 2021-01-15 09:39 | RADONC ---
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 He has continued on adjuvant TMZ with Dr. Cuadra at [facility]. Diagnosis/Treatment History Oncologic History As above Recent data: 12/05/20 MRI head FINDINGS: Brain: There is a right frontal postoperative cavity. There is no evidence of acute infarct. There is a small amount of hyperintense signal on FLAIR and T2 images at the margins of resection . This is particularly seen in the right superior frontal gyrus, series 601 T4 and 25. There is minimal smooth rim enhancement and smooth enhancement of the overlying dura this is decreased from prior scan. No nodular enhancement. No progressive enhancement. No hemorrhage. No extra-axial collection. No abnormal flow voids. Cerebral ventricles: There is no hydrocephalus. Bones/joints: There is a right frontal craniotomy. Paranasal sinuses: Normal as visualized. No acute sinusitis. Mastoid air cells: Normal as visualized. No mastoid effusion. Orbits: Unremarkable. Soft tissues: Unremarkable. IMPRESSION: Right frontal craniotomy with a postoperative cavity. There is hyperintense signal at the margin of resection, particularly in the superior frontal gyrus. This could represent residual nonenhancing tumor, stable compared with prior scan. Minimal postoperative rim enhancement significantly decreased from prior scan. No evidence of enhancing tumor Labs: Item Value Date Time White Blood Count 2.7 10^3/uL L 01/13/21814 Hemoglobin 13.6 g/dl 01/13/21814 Red Blood Count 4.42 10^6/uL 01/13/21 08 Hematocrit 42.5 % 01/13/21814 Mean Corpuscular Volume 96.2 fl H 01/13/21814 Mean Corpuscular Hemoglobin 30.8 pg 01/13/21814 Mean Corpuscular Hemoglobin Concent 32.0 g/dl 01/13/21814 Platelet Count 87 10^3/uL L 01/13/21814 Red Cell Distribution Width 13.9 % 2/22/21 0815 Lymphocytes (%) (Auto) 23.9 % L 01/13/2115 Immature Granulocyte % (Auto) 0.0 % 01/13/21814 Neutrophils (%) (Auto) 64.0 % 01/13/21814 Monocytes (%) (Auto) 9.9 % H 01/13/21814 Eosinophils (%) (Auto) 1.8 % 01/13/21814 Basophils (%) (Auto) 0.4 % 01/13/21814 Neutrophils # (Auto) 1.7 10^3/uL 01/13/21 0815 Lymphocytes # (Auto) 0.7 10^3/uL L 01/13/21 0815 Monocytes # (Auto) 0.3 10^3/uL 01/13/21 0815 Eosinophils # (Auto) 0.1 10^3/uL 01/13/2115 Basophils # (Auto) 0.0 10^3/uL 01/13/2115 Nucleated Red Blood Cells % (auto) 0.0 % 01/13/21814 Immature Platelet Fraction 1.7 % 01/13/21814 Item Value Date Time Sodium Level 142 MEQ/L 01/14/21 0803 Potassium Level 3.7 MEQ/L 01/14/21 0803 Chloride Level 105 MEQ/L 01/14/21 0803 Carbon Dioxide Level 31 MEQ/L 01/14/21 0803 Anion Gap 6 MEQ/L L 01/14/2103 Blood Urea Nitrogen 18 MG/DL 01/14/21 0803 Creatinine 0.99 MG/DL 01/14/21 0803 Glomerular Filtration Rate > 60.0 01/14/21 0803 Fasting Glucose 101 MG/DL H 01/14/21 0803 Calcium Level 9.2 MG/DL 01/14/21 0803 Total Bilirubin 0.7 MG/DL 01/14/21 0803 Aspartate Amino Transf (AST/SGOT) 73 U/L H 01/14/21 0803 Alanine Aminotransferase (ALT/SGPT) 285 U/L H 01/14/21 0803 Alkaline Phosphatase 156 U/L H 01/14/21 0803 Total Protein 6.9 GM/DL 01/14/21 0803 Albumin 4.1 GM/DL 01/14/21 0803 Albumin/Globulin Ratio 1.5 01/14/21 0803 Interval History Feels well. Tinnitus has resolved. Current chemo cycle held. Has no nausea with chemo. Has some epigastric discomfort which comes and goes. Primarily left sided post-prandial. No additional complaints today. Current Therapy TMZ Stage WHO III anaplastic oligodendroglioma, IDH mut, 1p19q co-deleted Social History: Never smoker Drinks on occasion not to excess Allergies / Meds Allergies: Coded Allergies: No Known Allergies (Unverified , 06/20/15) Home Meds Reported Medications Procarbazine HCl (Matulane) 50 Mg Capsule 01/15/21 Lomustine (Gleostine) 40 Mg Capsule 01/15/21 Levetiracetam (Levetiracetam) 750 Mg Tablet 01/15/21 Levetiracetam (Keppra) 750 Mg Tablet, 750 MG PO BID, TAB 04/04/20 Discontinued Reported Medications Prednisone (Prednisone) 50 Mg Tablet, DAILY 09/08/20 Ondansetron HCl (Ondansetron HCl) 4 Mg Tablet 07/17/20 Lidocaine HCl (Lidocaine HCl Viscous) 100 Ml Solution 07/17/20 Discontinued Scripts Prednisone (Prednisone) 20 Mg Tablet, 60 MG PO DAILY for 5 Days, #15 TAB Prov:LISA CERRATO [employer] 09/08/20 Famotidine (Famotidine) 40 Mg Tablet, 1 TAB PO DAILY for 3 Days, #3 TAB Prov:LISA CERRATO [facility] 09/08/20 Review of Systems Review of Systems Constitutional: Denies: Chills, Fever, Fatigue Eyes: Denies: Pain, Vision change HEENT: Denies: Head Aches, Ear Pain Skin: Denies: Rash Pulmonary: Denies: Dyspnea, Cough Cardiovascular: Denies: Chest Pain, Palpitations Gastrointestinal: Reports: Abdominal Pain, Constipation; Denies: Nausea, Vomiting, Diarrhea Genitourinary: Denies: Dysuria, Frequency Hematologic: Denies: Bruising Endocrine: Denies: Cold Intolerance Musculoskeletal: Denies: Neck pain, Back pain Neurological: Denies: Weakness, Numbness, Change in Speech Psych: Reports: Mood Normal Physical Examination Vital Signs Ht 74" Wt 220 lbs BMI 28 T 98.4 P 67 RR 18 BP 104/79 O2 99% Pain 0 Fatigue 0 General Exam: Positive: Alert, Cooperative; Negative: No Acute Distress Eye Exam: Positive: PERRLA, EOMI ENT EXAM: Positive: Atraumatic, Mucous membr. moist/pink Neck Exam: Positive: Supple Skin Exam: Positive: Nl turgor and temperature Neuro Exam: Positive: Normal Gait, Normal Speech, Strength at 5/5 X4 ext, Normal Tone, Sensation Intact, Cranial Nerves 3-12 NL Psych Exam: Positive: Mental status NL Diagnostic and Laboratory Diagnostic Review Radiologic images, relevant labs and pathology reports were personally reviewed and discussed with Mr. Solo. Assessment and Plan Impression Assessment Mr. 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 He has continued on adjuvant TMZ with Dr. Cuadra at [facility]. He is doing well with no significant neurologic symptoms or exam findings today. His most recent MRI from November 2020 shows stable post-therapy changes and no evidence of recurrent tumor. He does however have elevated LFTs due to chemotherapy, Dr. Cuadra is managing this. He currently is holding the next cycle pending her recommendations. As he is doing well, I will see him again in 6 months time. He can always call with any acute concerns and I would be happy to see him and/or coordinate care on his behalf. Performance Status ECOG 0 Plan Follow up in 6 months Imaging/chemotherapy per Dr. Cuadra Mr. Solo was encouraged to call with questions or concerns in the interim period. Billing Statement Total time of [22] minutes was spent preparing for the visit [3], obtaining HPI [3], examining the patient [3], reviewing diagnostic tests [4], discussing management options [4], coordinating care [0], and writing this note [5]. LUCI SYLVESTER MD Jan 15, 2021 09:39
== END ==
LOC: M ONCR 09:01
PROVIDERS: ATTEND General Practice
DX: C71.1 Malignant neoplasm of frontal lobe (principal)

== ENCOUNTER → 2021-01-17 | Outpatient (CLI) | payer BC, OTHER ==
[2021-01-17 11:25] LABS: BASO % 0.4 % (0.0-1.0); EOS # 0.1 10^3/uL (0.0-0.5); EOS % 1.8 % (0.0-3.0); HEMATOCRIT 42.1 % (42.0-52.0); HEMOGLOBIN 13.6 g/dl (13.5-17.5); LYMPH # 0.6 10^3/uL (1.5-5.0); LYMPH % 23.1 % (24.0-44.0); MEAN CORPUSCULAR HEMOGLOBIN 31.1 pg (27.0-33.0); MEAN CORPUSCULAR HGB CONC 32.3 g/dl (32.0-36.5); MEAN CORPUSCULAR VOLUME 96.3 fl (80.0-96.0); MONO # 0.3 10^3/uL (0.0-0.8); NEUTROPHILS # 1.7 10^3/uL (1.5-8.5); RED BLOOD COUNT 4.37 10^6/uL (4.30-6.10); WHITE BLOOD COUNT 2.7 10^3/uL (4.0-10.0)
[2021-01-17 11:29] LABS: PLATELET COUNT, AUTOMATED 90 10^3/uL (150-450)
[2021-01-17 12:12] LABS: ALBUMIN 4.2 GM/DL (3.2-5.2); ALT/SGPT 229 U/L (12-78); BILIRUBIN,TOTAL 0.7 MG/DL (0.2-1.0); BLOOD UREA NITROGEN 17 MG/DL (7-18); CALCIUM LEVEL 9.1 MG/DL (8.5-10.1); CARBON DIOXIDE LEVEL 31 MEQ/L (21-32); CHLORIDE LEVEL 108 MEQ/L (98-107); CREATININE FOR GFR 0.99 MG/DL (0.70-1.30); GLOMERULAR FILTRATION RATE > 60.0 (>60); GLUCOSE, FASTING 114 MG/DL (70-100); POTASSIUM SERUM 3.8 MEQ/L (3.5-5.1); SODIUM LEVEL 143 MEQ/L (136-145); TOTAL PROTEIN 6.8 GM/DL (6.4-8.2)
== END ==
LOC: M WUC 09:14
PROVIDERS: ATTEND Internal Medicine Medical Oncology
DX: C71.9 Malignant neoplasm of brain, unspecified (principal)

== ENCOUNTER → 2021-01-24 | Outpatient (CLI) | payer BC, OTHER ==
[2021-01-24 16:10] LABS: BASO % 0.4 % (0.0-1.0); EOS # 0.1 10^3/uL (0.0-0.5); EOS % 2.2 % (0.0-3.0); HEMATOCRIT 40.8 % (42.0-52.0); HEMOGLOBIN 13.2 g/dl (13.5-17.5); LYMPH # 0.6 10^3/uL (1.5-5.0); LYMPH % 22.8 % (24.0-44.0); MEAN CORPUSCULAR HEMOGLOBIN 31.7 pg (27.0-33.0); MEAN CORPUSCULAR HGB CONC 32.4 g/dl (32.0-36.5); MEAN CORPUSCULAR VOLUME 98.1 fl (80.0-96.0); MONO # 0.4 10^3/uL (0.0-0.8); MONO % 14.2 % (2.0-8.0); NEUTROPHILS # 1.6 10^3/uL (1.5-8.5); NEUTROPHILS % 60.4 % (36.0-66.0); PLATELET COUNT, AUTOMATED 109 10^3/uL (150-450); RED BLOOD COUNT 4.16 10^6/uL (4.30-6.10); WHITE BLOOD COUNT 2.7 10^3/uL (4.0-10.0)
[2021-01-24 16:46] LABS: ALBUMIN 4.2 GM/DL (3.2-5.2); ALT/SGPT 188 U/L (12-78); BILIRUBIN,TOTAL 0.5 MG/DL (0.2-1.0); BLOOD UREA NITROGEN 17 MG/DL (7-18); CALCIUM LEVEL 9.1 MG/DL (8.5-10.1); CARBON DIOXIDE LEVEL 31 MEQ/L (21-32); CHLORIDE LEVEL 109 MEQ/L (98-107); CREATININE FOR GFR 1.08 MG/DL (0.70-1.30); GLOMERULAR FILTRATION RATE > 60.0 (>60); GLUCOSE, FASTING 94 MG/DL (70-100); POTASSIUM SERUM 4.3 MEQ/L (3.5-5.1); SODIUM LEVEL 143 MEQ/L (136-145); TOTAL PROTEIN 6.8 GM/DL (6.4-8.2)
== END ==
LOC: M WUC 11:38
PROVIDERS: ATTEND Internal Medicine Medical Oncology
DX: C71.9 Malignant neoplasm of brain, unspecified (principal)

== ENCOUNTER → 2021-01-31 | Outpatient (CLI) | payer BC, OTHER ==
[2021-01-31 14:44] LABS: BASO % 0.6 % (0.0-1.0); EOS # 0.1 10^3/uL (0.0-0.5); EOS % 1.6 % (0.0-3.0); HEMATOCRIT 42.4 % (42.0-52.0); HEMOGLOBIN 13.8 g/dl (13.5-17.5); LYMPH # 0.7 10^3/uL (1.5-5.0); LYMPH % 22.4 % (24.0-44.0); MEAN CORPUSCULAR HEMOGLOBIN 31.8 pg (27.0-33.0); MEAN CORPUSCULAR HGB CONC 32.5 g/dl (32.0-36.5); MEAN CORPUSCULAR VOLUME 97.7 fl (80.0-96.0); MONO # 0.5 10^3/uL (0.0-0.8); MONO % 14.6 % (2.0-8.0); NEUTROPHILS % 60.8 % (36.0-66.0); PLATELET COUNT, AUTOMATED 180 10^3/uL (150-450); RED BLOOD COUNT 4.34 10^6/uL (4.30-6.10); WHITE BLOOD COUNT 3.2 10^3/uL (4.0-10.0)
[2021-01-31 14:53] LABS: ALBUMIN 4.1 GM/DL (3.2-5.2); ALT/SGPT 280 U/L (12-78); BILIRUBIN,TOTAL 0.4 MG/DL (0.2-1.0); BLOOD UREA NITROGEN 19 MG/DL (7-18); CALCIUM LEVEL 9.7 MG/DL (8.5-10.1); CARBON DIOXIDE LEVEL 30 MEQ/L (21-32); CHLORIDE LEVEL 108 MEQ/L (98-107); CREATININE FOR GFR 1.02 MG/DL (0.70-1.30); GLOMERULAR FILTRATION RATE > 60.0 (>60); GLUCOSE, FASTING 99 MG/DL (70-100); POTASSIUM SERUM 4.1 MEQ/L (3.5-5.1); SODIUM LEVEL 141 MEQ/L (136-145); TOTAL PROTEIN 6.9 GM/DL (6.4-8.2)
== END ==
LOC: M WUC 10:28
PROVIDERS: ATTEND Internal Medicine Medical Oncology
DX: C71.9 Malignant neoplasm of brain, unspecified (principal)

== ENCOUNTER → 2021-02-05 | Outpatient (CLI) | payer BC, OTHER ==
[~2021-02-05] MED LIST changes: +GASTROGRAFIN SOLUTION 30ML (Q9963) As Ordered ONE; +ISOVUE-370 76% 100ML VIAL As Ordered ONE
--- NOTE | 2021-02-05 14:36 | REP ---
INDICATION: ELEVATED LFTS, ABD PAIN. COMPARISON: Abdomen/pelvis CT dated 02/28/2020. TECHNIQUE: Scanning of the abdomen and pelvis is performed during the arterial phase of enhancement. Bowel contrast is also utilized. Scanning is repeated, not including the pelvis, during the renal excretion phase. FINDINGS: The visualized lung bales are unremarkable. No hepatic masses or cysts are identified on either phase of the study. The hepatic parenchyma is homogeneous on both phases of the study. The gallbladder, pancreas and spleen are normal size and unremarkable. The adrenals are unremarkable. The kidneys are unremarkable. The abdominal aorta is unremarkable. The bowel and mesentery are unremarkable except occasional diverticula in the descending colon and sigmoid colon. There is no CT evidence of diverticulitis. The appendix is unremarkable. Pelvis: There is no adenopathy or ascites. The bladder is unremarkable. IMPRESSION: The liver has a normal appearance. There is no ascites or adenopathy. No masses are identified. There are occasional diverticula without diverticulitis in the descending colon and sigmoid colon. <Electronically signed by Paulino Womack > 02/05/21 [id number]
== END ==
LOC: M RAD 12:16
DX: C71.9 Malignant neoplasm of brain, unspecified (principal)
CPT/HCPCS: 74177; Q9963; Q9967

== ENCOUNTER → 2021-02-05 | Outpatient (CLI) | payer BC, OTHER ==
[~2021-02-05] MED LIST changes: -GASTROGRAFIN SOLUTION 30ML (Q9963) As Ordered ONE; -ISOVUE-370 76% 100ML VIAL As Ordered ONE
[2021-02-05 12:40] LABS: BASO % 0.7 % (0.0-1.0); EOS % 1.5 % (0.0-3.0); HEMATOCRIT 43.3 % (42.0-52.0); HEMOGLOBIN 14.2 g/dl (13.5-17.5); LYMPH # 0.7 10^3/uL (1.5-5.0); LYMPH % 26.4 % (24.0-44.0); MEAN CORPUSCULAR HEMOGLOBIN 31.6 pg (27.0-33.0); MEAN CORPUSCULAR HGB CONC 32.8 g/dl (32.0-36.5); MEAN CORPUSCULAR VOLUME 96.4 fl (80.0-96.0); MONO # 0.5 10^3/uL (0.0-0.8); MONO % 17.1 % (2.0-8.0); NEUTROPHILS # 1.5 10^3/uL (1.5-8.5); NEUTROPHILS % 53.9 % (36.0-66.0); PLATELET COUNT, AUTOMATED 215 10^3/uL (150-450); RED BLOOD COUNT 4.49 10^6/uL (4.30-6.10); WHITE BLOOD COUNT 2.7 10^3/uL (4.0-10.0)
[2021-02-05 13:44] LABS: ALBUMIN 4.2 GM/DL (3.2-5.2); ALT/SGPT 468 U/L (12-78); BILIRUBIN,TOTAL 0.5 MG/DL (0.2-1.0); BLOOD UREA NITROGEN 21 MG/DL (7-18); CALCIUM LEVEL 9.7 MG/DL (8.5-10.1); CARBON DIOXIDE LEVEL 29 MEQ/L (21-32); CHLORIDE LEVEL 105 MEQ/L (98-107); CREATININE FOR GFR 0.83 MG/DL (0.70-1.30); GLOMERULAR FILTRATION RATE > 60.0 (>60); GLUCOSE, FASTING 92 MG/DL (70-100); POTASSIUM SERUM 4.3 MEQ/L (3.5-5.1); SODIUM LEVEL 140 MEQ/L (136-145)
== END ==
LOC: M WUC 11:41
PROVIDERS: ATTEND Internal Medicine Medical Oncology
DX: C71.9 Malignant neoplasm of brain, unspecified (principal)

== ENCOUNTER → 2021-02-12 | Outpatient (CLI) | payer BC, OTHER ==
[2021-02-12 15:58] LABS: HEMATOCRIT 42.5 % (42.0-52.0); HEMOGLOBIN 13.6 g/dl (13.5-17.5); LYMPH # 0.8 10^3/uL (1.5-5.0); LYMPH % 25.3 % (24.0-44.0); MEAN CORPUSCULAR VOLUME 96.8 fl (80.0-96.0); MONO # 0.5 10^3/uL (0.0-0.8); MONO % 17.6 % (2.0-8.0); NEUTROPHILS # 1.6 10^3/uL (1.5-8.5); NEUTROPHILS % 54.8 % (36.0-66.0); PLATELET COUNT, AUTOMATED 227 10^3/uL (150-450); RED BLOOD COUNT 4.39 10^6/uL (4.30-6.10)
[2021-02-12 16:24] LABS: ALBUMIN 4.2 GM/DL (3.2-5.2); ALT/SGPT 282 U/L (12-78); BILIRUBIN,TOTAL 0.5 MG/DL (0.2-1.0); BLOOD UREA NITROGEN 19 MG/DL (7-18); CALCIUM LEVEL 9.2 MG/DL (8.5-10.1); CARBON DIOXIDE LEVEL 30 MEQ/L (21-32); CHLORIDE LEVEL 107 MEQ/L (98-107); CREATININE FOR GFR 0.91 MG/DL (0.70-1.30); GLOMERULAR FILTRATION RATE > 60.0 (>60); GLUCOSE, FASTING 93 MG/DL (70-100); POTASSIUM SERUM 4.4 MEQ/L (3.5-5.1); SODIUM LEVEL 141 MEQ/L (136-145)
== END ==
LOC: M WUC 11:04
PROVIDERS: ATTEND Internal Medicine Medical Oncology
DX: C71.9 Malignant neoplasm of brain, unspecified (principal)

== ENCOUNTER → 2021-03-05 | Outpatient (CLI) | payer BC, OTHER | LOC: M WUC 10:37 | PROVIDERS: ATTEND Internal Medicine Medical Oncology | DX: C71.9 Malignant neoplasm of brain, unspecified (principal) ==

== ENCOUNTER → 2021-03-06 | Outpatient (CLI) | payer BC, OTHER ==
--- NOTE | 2021-03-06 11:04 | REP ---
INDICATION: R94.5-ABNORMAL RESULTS OF LIVER FUNCTION STUDIES. COMPARISON: 02/05/2021. TECHNIQUE: Real-time sonographic evaluation of right upper quadrant performed. FINDINGS: The gallbladder demonstrates no evidence of intraluminal sludge or calculi, wall thickening or pericholecystic fluid. There is no intrahepatic or extrahepatic biliary dilatation, common bile duct measures 4 mm in maximum diameter. The liver demonstrates homogeneous echotexture with no gross mass. Visualized pancreas is grossly unremarkable, not well visualized due to overlying bowel gas. The right kidney demonstrates no hydronephrosis, with a normal size of 11.1 cm in length. No free fluid is seen. IMPRESSION: Negative right upper quadrant ultrasound. <Electronically signed by Paulino Blanco > 03/06/21 [id number]
== END ==
LOC: M RAD 08:12
PROVIDERS: ATTEND Internal Medicine Gastroenterology
DX: R94.5 Abnormal results of liver function studies (principal)

== ENCOUNTER → 2021-03-07 | Outpatient (CLI) | payer BC, OTHER ==
[2021-03-11 16:21] LABS: COPROPORPHYRIN I URINE 31 ug/L (0-15); COPROPORPHYRIN III URINE 5 ug/L (0-49); HEPTACARBOXYLPORPHYRIN URINE 5 ug/L (0-2); HEXACARBOXYLPORPHYRIN URINE <1 ug/L (0-1); PENTACARBOXYLPORPHYRIN URINE 2 ug/L (0-2); PORPHOBILINOGEN RANDOM URINE 1.3 mg/L (0.0-2.0); UROPORPHYRIN URINE 18 ug/L (0-20)
== END ==
LOC: M LAB 16:14
PROVIDERS: ATTEND Internal Medicine Medical Oncology
DX: C71.9 Malignant neoplasm of brain, unspecified (principal)

== ENCOUNTER → 2021-03-11 | Outpatient (CLI) | payer BC, OTHER ==
--- NOTE | 2021-03-11 10:32 | REP ---
INDICATION: GLIOMA, CPA TUMOR, NECK PAIN, LATESHA ARM NUMBNESS. COMPARISON: MRI brain 12/05/2020. TECHNIQUE: Axial T1, T2, FLAIR, gradient echo, and multiplanar postcontrast T1 weighted images are obtained. FINDINGS: Again seen is a right frontal postoperative cavity. No evidence of restricted diffusion to suggest acute infarction. No gradient echo susceptibility to suggest hemorrhage. The ventricles and extra-axial CSF spaces are within normal limits. No mass effect or midline shift. No abnormal fluid collections. The right frontal resection cavity demonstrates minimal marginal FLAIR hyperintensity, not significantly changed from the comparison study. Following contrast, no abnormal enhancement. Cerebral ventricles: There is no hydrocephalus. Bones/joints: There is a right frontal craniotomy. Paranasal sinuses: Normal as visualized. No acute sinusitis. Mastoid air cells: Normal as visualized. No mastoid effusion. Orbits: Unremarkable. Soft tissues: Unremarkable. IMPRESSION: Stable examination, status post resection with right frontal postoperative cavity. The cavity size and signal characteristic is unchanged from previous. No abnormal enhancement. Other findings are also stable. <Electronically signed by Rigoberto Fox > 03/11/21 [id number]
== END ==
LOC: M PLARAD 08:55
PROVIDERS: ATTEND Physician Assistant
DX: C71.9 Malignant neoplasm of brain, unspecified (principal); D33.3 Benign neoplasm of cranial nerves; M54.2 Cervicalgia; R20.2 Paresthesia of skin

== ENCOUNTER → 2021-05-03 | Outpatient (CLI) | payer BC, OTHER | LOC: M LABSMTC 09:29 | DX: Z01.818 Encounter for other preprocedural examination (principal); Z20.822 Contact with and (suspected) exposure to COVID-19 ==

== ENCOUNTER → 2021-07-16 | Outpatient (CLI) | payer BC, OTHER ==
--- NOTE | 2021-07-16 09:58 | RADONC ---
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 He completed 4 cycles PCV chemotherapy on 07/08/20-12/03/20. Additional cycles were aborted for chemo induced LFT elevation. Diagnosis/Treatment History Oncologic History As above Recent data: 03/11/21 MRI brain stable 03/06/21 US abdomen WNL 02/05/21 CT abdomen WNL Next MRI head pending. Appointment with Dr. Cuadra 07/21/21 Interval History Vishal reports he had a bout of BRBPR earlier this year as well as elevated LFTs which warranted GI workup including colonoscopy which was negative. He has no nausea, vomiting, SINGLETON, or BRBPR currently. He has no neurological symptoms or seizures. Energy levels good, weight stable. He does have concern for some moles which have arisen on his face and in particular his back. He would like to see a resident inspector for this but has had trouble getting an appointment. He also has some ongoing epigastric pain associated with bending over, mild, no prandial correlation. Current Therapy Surveillance Stage WHO III anaplastic oligodendroglioma, IDH mut, 1p19q co-deleted Social History: Never smoker Drinks on occasion not to excess Allergies / Meds Allergies: Coded Allergies: No Known Allergies (Unverified , 06/20/15) Home Meds Reported Medications Procarbazine HCl (Matulane) 50 Mg Capsule 01/15/21 Lomustine (Gleostine) 40 Mg Capsule 01/15/21 Levetiracetam (Levetiracetam) 750 Mg Tablet 01/15/21 Levetiracetam (Keppra) 750 Mg Tablet, 750 MG PO BID, TAB 04/04/20 Review of Systems Review of Systems Constitutional: Denies: Chills, Fever, Weakness, Fatigue Eyes: Denies: Pain, Vision change HEENT: Denies: Head Aches Skin: Reports: Lesions (Moles, new onset); Denies: Rash Pulmonary: Denies: Dyspnea Cardiovascular: Denies: Chest Pain, Palpitations Gastrointestinal: Denies: Abdominal Pain, Hematochezia Hematologic: Denies: Bruising, Bleeding Excessively Endocrine: Denies: Cold Intolerance Musculoskeletal: Denies: Neck pain, Back pain Neurological: Denies: Weakness, Numbness, Incoordination, Seizures Psych: Reports: Mood Normal Physical Examination General Exam: Alert, Cooperative, No Acute Distress Eye Exam: PERRLA, Sclera icteric ENT EXAM: Atraumatic Neck Exam: Supple Chest Exam: Clear to auscultation, Normal air movement Heart Exam: Rate Normal Abdomen Exam: Soft; Negative: Tenderness Extremity Exam: Negative: Edema Skin Exam: Lesion (There are relatively few, normal appearing nevi on the face in M area. There is a small 0.3 cm nodular lesion in the mid-back to the left of the spine which is non-tender and has inhomogenous pigmentation. To the right of this lesion there is another 0.2 cm normal appearing mole. Overall he has evidence of current sun-exposure.) Neuro Exam: Normal Gait, Normal Speech, Strength at 5/5 X4 ext, Cranial Nerves 3-12 NL Psych Exam: Mental status NL Diagnostic and Laboratory Diagnostic Review Radiologic images, relevant labs and pathology reports were personally reviewed and discussed with Mr. Solo. Assessment and Plan Impression Assessment Mr. 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 He completed 4 cycles PCV chemotherapy on 07/08/20-12/03/20. Additional cycles were a borted for chemo induced LFT elevation. He is due for follow up with Dr. Cuadra on 07/21/21, reports that no MRI was ordered in advance of this appointment. I will attempt to get him scanned prior to the appointment. I am happy to order his surveillance scans, should Dr. Cuadra prefer, or she could continue to order them as she is seeing him more frequently than I am at this juncture. He has no evidence of recrudescent neurological signs or symptoms, he is >1 year removed from RT. With respect to his epigastric pain, I reviewed all of his abdominal workup to date, and see no organic cause. I believe the remaining pain is musculoskeletal in nature as it has no prandial correlation and it is associated with position and posture changes. I recommended that he judiciously exercise his core muscles and back muscles as this physical therapy can improve such pain and discomfort. With respect to his concerns of new moles. I explained that these are most likely benign and associated with ongoing sun exposure (he is quite luo), there is one nodule on the back that I think warrants dermatologic evaluation. I will refer him to [facility] for this. I will see him back in 6 months, or sooner if needed. Performance Status ECOG 0 Plan MRI head now in anticipation of apt w/ Dr. Cuadra on 07/21/21 Referral to [facility] for skin check/moles Follow up in 6 months Mr. Solo was encouraged to call with questions or concerns in the interim period. Billing Statement Total time of [32] minutes was spent preparing for the visit [2], obtaining HPI [6], examining the patient [4], reviewing diagnostic tests [4], discussing management options [6], coordinating care [3], and writing this note [7]. LUCI SYLVESTER MD Jul 16, 2021 09:57
== END ==
LOC: M ONCR 09:00
PROVIDERS: ATTEND General Practice
DX: C71.1 Malignant neoplasm of frontal lobe (principal); D22.9 Melanocytic nevi, unspecified; R13.10 Dysphagia, unspecified; Z79.899 Other long term (current) drug therapy; Z92.21 Personal history of antineoplastic chemotherapy; Z92.3 Personal history of irradiation

== ENCOUNTER → 2021-07-18 | Outpatient (CLI) | payer BC, OTHER ==
--- NOTE | 2021-07-18 18:26 | REPVR ---
PROCEDURE INFORMATION: Exam: MR Head Without and With Contrast Exam date and time: 07/18/2021 12:04 PM Age: 41 years old Clinical indication: Glioma surveillance. TECHNIQUE: Imaging protocol: MR of the head without and with intravenous contrast. Contrast material: PROHANCE; Contrast volume: 19 ml; Contrast route: INTRAVENOUS (IV); COMPARISON: MRI-Brain W/O FOLL BY WITH 03/11/2021 9:09 AM FINDINGS: Brain: There is evidence of prior right parietal craniotomy. There is a postsurgical cavity deep to the craniotomy. There is no mass or abnormal enhancement at the craniotomy site to suggest residual and/or recurrent tumor. The appearance is similar to prior study. Cerebral ventricles: Normal. No ventriculomegaly. Paranasal sinuses: Normal as visualized. No acute sinusitis. Mastoid air cells: Normal as visualized. No mastoid effusion. Orbital cavity: Unremarkable. Soft tissues: Unremarkable. IMPRESSION: There is evidence of prior right parietal craniotomy. There is a postsurgical cavity deep to the craniotomy. There is no mass or abnormal enhancement at the craniotomy site to suggest residual and/or recurrent tumor. The appearance is similar to prior study. Electronically signed by: Omi Partida On 07/18/2021 18:26:03 PM
== END ==
LOC: M PLARAD 07:44
PROVIDERS: ATTEND General Practice
DX: C71.9 Malignant neoplasm of brain, unspecified (principal)

== ENCOUNTER → 2021-09-24 | Outpatient (CLI) | payer BC, OTHER ==
[~2021-09-24] MED LIST changes: +PROHANCE 279.3MG/ML 15ML VIAL ONE; +PROHANCE 279.3MG/ML 5ML VIAL ONE
--- NOTE | 2021-09-24 16:27 | REPVR ---
PROCEDURE INFORMATION: Exam: MR Head Without and With Contrast Exam date and time: 09/24/2021 11:40 AM Age: 41 years old Clinical indication: Condition or disease; Neoplasm of brain, uncertain behavior; Prior surgery; Surgery date: 6+ months; Surgery type: Brain tumor removal 2019; Additional info: Malignant neoplasm of brain, unspecified TECHNIQUE: Imaging protocol: MR of the head without and with intravenous contrast. Contrast material: PROHANCE; Contrast volume: 20 ml; Contrast route: INTRAVENOUS (IV); COMPARISON: MRI-Brain W/O FOLL BY WITH 07/18/2021 8:28 AM FINDINGS: Brain: There is a stable right frontal lobe resection cavity with minimal T2 hyperintensity along the margins, likely gliosis. There is no significant enhancement. There are scattered foci of T2/FLAIR white matter hyperintensity, nonspecific. Normal parenchymal signal is otherwise preserved. There is no diffusion restriction. Cerebral ventricles: Normal. No ventriculomegaly. Bones/joints: There are right frontal craniotomy changes. Paranasal sinuses: Normal as visualized. No acute sinusitis. Mastoid air cells: Normal as visualized. No mastoid effusion. Orbital cavity: Unremarkable. Soft tissues: Unremarkable. IMPRESSION: Postoperative change reflecting right frontal craniotomy and mass resection. No evidence of residual or recurrent disease. Electronically signed by: Yulissa Rios On 09/24/2021 16:26:35 PM
== END ==
LOC: M PLAIMG 10:31
PROVIDERS: ATTEND Neurological Surgery
DX: C71.9 Malignant neoplasm of brain, unspecified (principal)
CPT/HCPCS: 70553; A9576

== ENCOUNTER → 2022-02-18 | Outpatient (CLI) | payer BC, OTHER | LOC: M PLAIMG 13:17 | PROVIDERS: ATTEND Psychiatry & Neurology Neurology | DX: G40.109 Localization-related (focal) (partial) symptomatic epilepsy and epileptic syndromes with simple partial seizures, not intractable, without status epilepticus (principal) | CPT/HCPCS: 70553; A9576 ==

== ENCOUNTER → 2022-04-10 | Outpatient (CLI) | payer BC, OTHER ==
[~2022-04-10] MED LIST changes: -PROHANCE 279.3MG/ML 15ML VIAL ONE; -PROHANCE 279.3MG/ML 5ML VIAL ONE
== END ==
LOC: M ONCR 09:58
PROVIDERS: ATTEND General Practice
DX: C71.1 Malignant neoplasm of frontal lobe (principal); R42 Dizziness and giddiness; R39.198 Other difficulties with micturition; R41.3 Other amnesia; Z92.21 Personal history of antineoplastic chemotherapy; Z92.3 Personal history of irradiation

== ENCOUNTER → 2022-06-19 | Outpatient (CLI) | payer BC, OTHER ==
[~2022-06-19] MED LIST changes: +PROHANCE 279.3MG/ML 15ML VIAL As Ordered ONE; +PROHANCE 279.3MG/ML 5ML VIAL As Ordered ONE
== END ==
LOC: M RAD 12:24
PROVIDERS: ATTEND Psychiatry & Neurology Neurology
DX: C71.9 Malignant neoplasm of brain, unspecified (principal)
CPT/HCPCS: 70553; A9576

== ENCOUNTER → 2022-10-30 | Outpatient (CLI) | payer BC, OTHER ==
[~2022-10-30] MED LIST changes: -PROHANCE 279.3MG/ML 15ML VIAL As Ordered ONE; +PROHANCE 279.3MG/ML 15ML VIAL ONE; -PROHANCE 279.3MG/ML 5ML VIAL As Ordered ONE; +PROHANCE 279.3MG/ML 5ML VIAL ONE
== END ==
LOC: M PLAIMG 10:16
PROVIDERS: ATTEND Psychiatry & Neurology Neurology
DX: C71.9 Malignant neoplasm of brain, unspecified (principal)
CPT/HCPCS: 70553; A9576

== ENCOUNTER → 2023-04-05 | Outpatient (CLI) | payer BC, OTHER ==
[~2023-04-05] MED LIST changes: +LIDO2SOBTL; -LIDO2SOL9; +PROHANCE 279.3MG/ML 15ML VIAL As Ordered ONE; -PROHANCE 279.3MG/ML 15ML VIAL ONE; +PROHANCE 279.3MG/ML 5ML VIAL As Ordered ONE; -PROHANCE 279.3MG/ML 5ML VIAL ONE
== END ==
LOC: M RAD 08:44
PROVIDERS: ATTEND Psychiatry & Neurology Neurology
DX: C71.9 Malignant neoplasm of brain, unspecified (principal)
CPT/HCPCS: 70553; A9576

== ENCOUNTER → 2023-04-13 | Outpatient (CLI) | payer BC, OTHER ==
[~2023-04-13] MED LIST changes: -PROHANCE 279.3MG/ML 15ML VIAL As Ordered ONE; -PROHANCE 279.3MG/ML 5ML VIAL As Ordered ONE
== END ==
LOC: M ONCR 09:51
PROVIDERS: ATTEND General Practice
DX: C71.1 Malignant neoplasm of frontal lobe (principal); Z71.2 Person consulting for explanation of examination or test findings; Z79.899 Other long term (current) drug therapy; Z92.21 Personal history of antineoplastic chemotherapy; Z92.3 Personal history of irradiation

== ENCOUNTER → 2023-10-20 | Outpatient (CLI) | payer BC, OTHER ==
[~2023-10-20] MED LIST changes: +PROHANCE 279.3MG/ML 15ML VIAL As Ordered ONE; +PROHANCE 279.3MG/ML 5ML VIAL As Ordered ONE
== END ==
LOC: M RAD 10:34
PROVIDERS: ATTEND General Practice
DX: C71.1 Malignant neoplasm of frontal lobe (principal)
CPT/HCPCS: 70553; A9576

== ENCOUNTER → 2023-11-09 | Outpatient (CLI) | payer BC, OTHER ==
[~2023-11-09] MED LIST changes: +LIDO100S29; -LIDO2SOBTL; -PROHANCE 279.3MG/ML 15ML VIAL As Ordered ONE; -PROHANCE 279.3MG/ML 5ML VIAL As Ordered ONE
== END ==
LOC: M ONCR 10:59
PROVIDERS: ATTEND General Practice
DX: C71.1 Malignant neoplasm of frontal lobe (principal); Z71.2 Person consulting for explanation of examination or test findings; Z79.899 Other long term (current) drug therapy; Z92.3 Personal history of irradiation; Z92.21 Personal history of antineoplastic chemotherapy

== ENCOUNTER → 2024-05-04 | Outpatient (CLI) | payer BC ==
[~2024-05-04] MED LIST changes: +PROHANCE 279.3MG/ML 15ML VIAL As Ordered ONE; +PROHANCE 279.3MG/ML 5ML VIAL As Ordered ONE
== END ==
LOC: M RAD 08:10
PROVIDERS: ATTEND General Practice
DX: C71.1 Malignant neoplasm of frontal lobe (principal)
CPT/HCPCS: 70553; A9576

== ENCOUNTER → 2024-05-11 | Outpatient (CLI) | payer BC ==
[~2024-05-11] MED LIST changes: -PROHANCE 279.3MG/ML 15ML VIAL As Ordered ONE; -PROHANCE 279.3MG/ML 5ML VIAL As Ordered ONE
== END ==
LOC: M ONCR 10:37
PROVIDERS: ATTEND General Practice
DX: C71.1 Malignant neoplasm of frontal lobe (principal); Z92.21 Personal history of antineoplastic chemotherapy; Z92.3 Personal history of irradiation; Z71.2 Person consulting for explanation of examination or test findings; Z79.899 Other long term (current) drug therapy

== ENCOUNTER → 2024-10-31 | Outpatient (CLI) | payer BC ==
[~2024-10-31] MED LIST changes: +PROHANCE 279.3MG/ML 15ML VIAL As Ordered ONE; +PROHANCE 279.3MG/ML 5ML VIAL As Ordered ONE
== END ==
LOC: M RAD 10:36
PROVIDERS: ATTEND General Practice
DX: C71.1 Malignant neoplasm of frontal lobe (principal)

== ENCOUNTER → 2024-11-07 | Outpatient (CLI) | payer BC ==
[~2024-11-07] MED LIST changes: -PROHANCE 279.3MG/ML 15ML VIAL As Ordered ONE; -PROHANCE 279.3MG/ML 5ML VIAL As Ordered ONE
== END ==
LOC: M ONCR 10:45
PROVIDERS: ATTEND General Practice
DX: Z08 Encounter for follow-up examination after completed treatment for malignant neoplasm (principal); Z85.841 Personal history of malignant neoplasm of brain; Z98.890 Other specified postprocedural states; Z92.3 Personal history of irradiation; Z92.21 Personal history of antineoplastic chemotherapy; Z79.899 Other long term (current) drug therapy

== ENCOUNTER → 2025-10-23 | Outpatient (CLI) | payer BC ==
[~2025-10-23] MED LIST changes: -PRED50TA; +PRED50TA57; +PROHANCE 279.3MG/ML 15ML VIAL As Ordered ONE; +PROHANCE 279.3MG/ML 5ML VIAL As Ordered ONE
[2025-10-23 17:17] LABS: ALT/SGPT 30 U/L (7.0-40); AST/SGOT 23 U/L (<34); CALCIUM LEVEL 9.5 MG/DL (8.5-10.1); CARBON DIOXIDE LEVEL 29 MMOL/L (20-31); CHLORIDE LEVEL 104 MMOL/L (98-107); CREATININE FOR GFR 0.92 MG/DL (0.70-1.30); GLOMERULAR FILTRATION RATE > 90.0 (>60); POTASSIUM SERUM 4.6 MMOL/L (3.5-5.1); SODIUM LEVEL 142 MMOL/L (136-145)
== END ==
LOC: M RAD 15:46
PROVIDERS: ATTEND General Practice
DX: C71.1 Malignant neoplasm of frontal lobe (principal)

== ENCOUNTER → 2025-11-09 | Outpatient (CLI) | payer BC ==
[~2025-11-09] MED LIST changes: +MELO15TA28 PO; +PRED10TA2 PO; +PRED5TA PO; -PROHANCE 279.3MG/ML 15ML VIAL As Ordered ONE; -PROHANCE 279.3MG/ML 5ML VIAL As Ordered ONE
== END ==
LOC: M ONCR 08:55
PROVIDERS: ATTEND General Practice
DX: Z08 Encounter for follow-up examination after completed treatment for malignant neoplasm (principal); M54.32 Sciatica, left side; Z85.841 Personal history of malignant neoplasm of brain; Z79.899 Other long term (current) drug therapy; Z92.21 Personal history of antineoplastic chemotherapy; Z92.3 Personal history of irradiation